=== PATIENT | female | born 1985 | race Asian ===

== ENCOUNTER → 2022-08-31 08:42 | Outpatient (CLI) | payer OTHER, SELFPAY ==
--- NOTE | 2022-08-31 08:44 | DI.US.S_ITS ---
PROCEDURE: US OB <= 14 WEEKS FETUS INDICATIONS: Dating and viability OUTSIDE/PRIOR DATING DATA: Last menstrual period (LMP): 06/02/2022. LMP-based estimated date of delivery (KAMERON): 03/09/2023. First dating scan (date and location): 08/31/2022 today. Estimated date of delivery (KAMERON) from first dating scan: 03/06/2023. TECHNIQUE: Real-time scanning was performed of the fetus and maternal pelvic organs, with image documentation. Endovaginal scanning was also performed to better visualize the fetus and maternal ovaries. COMPARISON: None. FINDINGS: Heart rate is 157 beats per minute. Cervix appears closed. BPD is 2.1 cm. Head circumference is 8 cm. Abdominal circumference is 6.9 cm. Femur length is 1 cm. Estimated gestational age of 12 weeks and 6 days. Composite gestational age today is 13 weeks and 2 days. IMPRESSION: Single intrauterine gestation. Heart motion is seen. Ultrasound age as above, concordant with the reported LMP. Dictated by: Vince Oates M.D. on 08/31/2022 at 9:36 Approved by: Vince Oates M.D. on 08/31/2022 at 9:38
== END ==
PROVIDERS: Referring Provider Obstetrics & Gynecology; Visit Provider Obstetrics & Gynecology
DX: Z36.87 Encounter for antenatal screening for uncertain dates (principal); Z3A.12 12 weeks gestation of pregnancy
CPT/HCPCS: 76801; 76817

== ENCOUNTER → 2022-09-03 16:21 | Outpatient (CLI) | payer OTHER, SELFPAY ==
[2022-09-03 20:33] LABS: Urine N gonorrhoeae NOT DETECTED
[2022-09-03 20:37] LABS: Urine Chlamydia NOT DETECTED
== END ==
PROVIDERS: Visit Provider Specialist
DX: Z34.81 Encounter for supervision of other normal pregnancy, first trimester (principal); Z3A.13 13 weeks gestation of pregnancy
CPT/HCPCS: 87491; 87591

== ENCOUNTER → 2022-09-03 16:47 | Outpatient (CLI) | payer OTHER, SELFPAY ==
[2022-09-03 16:58] LABS: Specimen Label Y
[2022-09-03 17:59] LABS: Add Manual Diff / Slide Review NO; Basophils Absolute Auto 0 /uL (0-100); Basophils Percent Auto 0.2 % (0-2); Eosinophils Absolute Auto 0 /uL (0-450); Eosinophils Percent Auto 0.4 % (2-4); Hematocrit 38.4 % (36-46); Lymphocytes Absolute Auto 1400 /uL (1100-4500); Lymphocytes Percent Auto 18.1 % (25-40); Mean Corpuscular HGB Conc 33.9 % (30-36); Mean Corpuscular Hemoglobin 29.2 PG (26-34); Mean Corpuscular Volume 86.1 fL (80-100); Monocytes Absolute Auto 400 /uL (0-900); Monocytes Percent Auto 5.6 % (3-14); Neutrophils Absolute Auto 5700 /uL (1500-7000); Neutrophils Percent Auto 75.7 % (50-75); Platelet Count 236 X10^3/uL (150-400); Red Blood Cell Count 4.46 X10^6/uL (4.0-5.2); Red Cell Distribution Width 13.9 % (11.6-14.8); White Blood Cell Count 7.5 X10^3/uL (4.5-11.0)
[2022-09-03 19:08] LABS: TSH w/ Reflex to FT4 1.39 uIU/mL (0.47-4.68)
[2022-09-04 07:03] LABS: RPR Screen Non Reactive (Non Reactive)
[2022-09-04 08:09] LABS: Varicella IgG Antibody 1728 index (Immune >165)
[2022-09-06 14:07] LABS: Hepatitis B Surface Antigen NEGATIVE s/c (NEGATIVE)
[2022-09-06 14:25] LABS: Hep C Virus Ab w/Reflex Quant NEGATIVE s/c (NEGATIVE)
[2022-09-06 14:51] LABS: HIV 1 & 2 Ab/Ag 4th Gen Combo NEGATIVE (NEGATIVE)
== END ==
PROVIDERS: Obstetrics & Gynecology; Referring Provider Specialist; Visit Provider Specialist
DX: O09.521 Supervision of elderly multigravida, first trimester; R53.83 Other fatigue; O99.891 Other specified diseases and conditions complicating pregnancy; Z3A.13 13 weeks gestation of pregnancy
CPT/HCPCS: 36415; 80055; 84443; 86787; 86803; 86850; 86900; 86901; 87086; 87389; 87491; 87591

== ENCOUNTER → 2022-09-30 08:23 | Outpatient (CLI) | payer OTHER, SELFPAY ==
[2022-10-02 20:08] LABS: AFP Value 38.6 ng/mL (.); Gest Age on Col Date 17.1 weeks (.); Insulin Dep Diabetes No (.); OSBR Risk 1IN 10000 (.); Results Report (.); Test Results *Screen Negative* (.)
== END ==
PROVIDERS: Referring Provider Specialist; Visit Provider Specialist
DX: Z34.82 Encounter for supervision of other normal pregnancy, second trimester (principal); Z3A.17 17 weeks gestation of pregnancy
CPT/HCPCS: 36415; 82105

== ENCOUNTER → 2022-10-22 16:26 | Outpatient (CLI) | payer OTHER, SELFPAY ==
--- NOTE | 2022-10-22 16:27 | DI.US.S_ITS ---
PROCEDURE: US OB >= 14 WEEKS FETUS INDICATIONS: 20 week anatomy OUTSIDE/PRIOR DATING DATA: Last menstrual period (LMP): 06/02/2022. LMP-based estimated date of delivery (KAMERON): 03/09/2023. First dating scan (date and location): 08/31/2022. Estimated date of delivery (KAMERON) from first dating scan: 03/06/2023. TECHNIQUE: Real-time scanning was performed of the fetus, with image documentation and biometric measurements. Endovaginal scanning: Not performed COMPARISON: [facility], US, US OB >= 14 WEEKS FETUS, 09/30/2022, 8:19. FINDINGS: General: A single living intrauterine gestation is present. Presentation: Breech. Placenta: Placental position is posterior , without previa. Amniotic fluid index: 15.7 cm, normal range is 5-24 cm. Single deepest vertical pocket is 4.5 cm. heart rate: 145 beats per minute. Maternal cervical canal: 3.6 cm long. Normal lower limit is 2.5 cm. biometrics: Biparietal diameter: 4.8 cm 20 weeks 3 days Head circumference: 18.1 cm 20 weeks 4 days Abdominal circumference: 15.5 cm 21 weeks 0 days Femur length: 3.3 cm 20 weeks 1 day estimated gestational age: 20 weeks 2 days Composite gestational age from present scan: 20 weeks 4 days Estimated weight and percentile: 365 g, 64th percentile Anatomic survey: Neuro: Ventricles are non-dilated at less than 10 mm. Cisterna magna is normal at 3-11 mm. Cerebellum is normal in size and morphology. Nuchal skin fold: Normal at less than 6 mm between 14-21 weeks gestational age. Face: Facial profile and nose and lips not well seen. Spine: No evidence for spina bifida. Heart: 4-chambered heart is present, with normal ventricular outflow tracts. Diaphragm: Diaphragm is intact. Stomach: Left-sided stomach is present. Kidneys: No hydronephrosis. Normal is less than 5 mm in 2nd trimester, less than 7 mm in 3rd trimester. Cord: 3-vessel cord has orthotopic insertion. Bladder: Normal in size. Extremities: All 4 extremities identified. IMPRESSION: 1. Single living intrauterine . 2. facial profile and nose/lips were not well seen. Attention on follow-up recommended. 3. Visualized anatomy is within normal limits. We strive to produce accurate, complete, and clear reports of imaging services. To assist us in improving patient care, this report was composed using standard report templates and voice recognition software. Therefore, it may contain abnormal punctuation, insertions and/or omissions. Occasional wrong-word or sound-alike substitutions may occur. Though we review the report and make efforts to correct it, we do recommend that the report be read carefully in proper context to recognize any text inaccuracies. Dictated by: Mark Anthony Kendall M.D. on 10/24/2022 at 13:02 Approved by: Mark Anthony Kendall M.D. on 10/24/2022 at 13:09
== END ==
PROVIDERS: Referring Provider Specialist; Visit Provider Specialist
DX: Z34.82 Encounter for supervision of other normal pregnancy, second trimester (principal); Z3A.20 20 weeks gestation of pregnancy
CPT/HCPCS: 76811

== ENCOUNTER → 2022-11-01 11:35 | Outpatient (CLI) | payer OTHER, SELFPAY ==
--- NOTE | 2022-11-01 11:35 | DI.US.S_ITS ---
PROCEDURE: US OB FOLLOW UP INDICATIONS: FOLLOW UP ANATOMY OUTSIDE/PRIOR DATING DATA: Last menstrual period (LMP): 06/02/22. LMP-based estimated date of delivery (KAMERON): 03/09/23. First dating scan (date and location): 08/08/22. Estimated date of delivery (KAMERON) from first dating scan: 03/06/23. The calculations are made using the working KAMERON of 03/09/23. TECHNIQUE: Real-time scanning was performed of the fetus, with image documentation. Endovaginal scanning: Not performed COMPARISON: [facility], OB >= 14 WEEKS FETUS, 10/22/2022, 16:35. FINDINGS: A single living intrauterine gestation is present. Presentation: Vertex. Placenta: Placental position is posterior, without previa. Amniotic fluid index: 16.5 cm, normal range is 5-24 cm. Single deepest vertical pocket is 4.3 cm. heart rate: 145 beats per minute. Maternal cervical canal: Closed and 4.2 cm long. Normal lower limit is 2.5 cm. Clinically estimated gestational age: 21 weeks 5 days facial features including the profile, nose, lips, and orbits appear normal. Incidental note is made of synechiae/amniotic sheet in the left lower quadrant adjacent to the lower aspect of the placenta. IMPRESSION: 1. Single living intrauterine . 2. Completion of anatomic survey with visualization of normal facial features. 3. Incidental note made of synechiae in the left lower quadrant, most commonly secondary to prior uterine scarring. Dictated by: Katlyn Matamoros M.D. on 11/01/2022 at 17:32 Approved by: Katlyn Matamoros M.D. on 11/02/2022 at 18:28
== END ==
PROVIDERS: Referring Provider Specialist; Visit Provider Specialist
DX: Z36.2 Encounter for other antenatal screening follow-up (principal); Z3A.21 21 weeks gestation of pregnancy
CPT/HCPCS: 76816

== ENCOUNTER → 2022-12-02 16:22 | Outpatient (CLI) | payer OTHER, SELFPAY ==
[2022-12-02 18:34] LABS: GTT (PREG) 1 Hour PP 50gm Dose 132 mg/dL (76-139)
[2022-12-02 18:36] LABS: Hematocrit 32.9 % (36-46); Hemoglobin 10.8 g/dL (12.0-16.0)
== END ==
PROVIDERS: Referring Provider Student in an Organized Health Care Education/Training Program; Visit Provider Student in an Organized Health Care Education/Training Program
DX: Z34.82 Encounter for supervision of other normal pregnancy, second trimester (principal); Z3A.26 26 weeks gestation of pregnancy
CPT/HCPCS: 36415; 82950; 85014; 85018

== ENCOUNTER 2023-02-08 03:58 | Inpatient (IN) | payer OTHER, SELFPAY ==
[2023-02-08] VITALS (7 sets, daily range): BP systolic 97–114; BP diastolic 67–72; PULSE 68–77; RESP 12–16; TEMP 36.3–36.6; O2SAT 99–100
--- NOTE | 2023-02-08 | PATH_ITS ---
[facility] Accession Number: [id number] . 01 Material submitted: . fallopian tube - BILATERAL FALLOPIAN TUBES . 01 Diagnosis: Bilateral Fallopian Tubes, Bilateral Salpingectomy: Complete cross-section of bilateral fimbriated fallopian tubes identified without any significant pathologic alterations. AMOS 02/15/2023 1000 Local . 01 Electronically signed: . Shavonne Guerrero MD, Pathologist NPI- [id number] . 01 Gross description: . The specimen is received in formalin labeled with the patient's name, , and bilateral fallopian tubes, and consists of two unoriented, fimbriated fallopian tubes measuring 7.3 x 0.8 cm and 9.4 x 0.5 cm respectively. Both tubes have violaceous, smooth serosa with multiple cystic structures measuring up to 0.1 cm in greatest dimension filled with cloudy serous fluid. Sectioning reveals unremarkable stellate lumen. Commercial Baker Helper sections to include one-half of bisected fimbriae and cross-sections are submitted as follows: A1: Longer fallopian tube. A2: [place] fallopian tube. ([id number]) /AMOS 02/10/2023 1050 Local . 01 Pathologist provided ICD-10: Z30.2 . 01 CPT . 424213 Performed at: 01 [facility] [address], [place], [place] [id number] MD Dru Newell MD Phone: [phone]
[2023-02-08 05:51] LABS: Add Manual Diff / Slide Review NO; Basophils Absolute Auto 0 /uL (0-100); Basophils Percent Auto 0.3 % (0-2); Eosinophils Absolute Auto 100 /uL (0-450); Eosinophils Percent Auto 0.5 % (2-4); Hematocrit 36.7 % (36-46); Hemoglobin 11.9 g/dL (12.0-16.0); Lymphocytes Absolute Auto 1100 /uL (1100-4500); Lymphocytes Percent Auto 10.7 % (25-40); Mean Corpuscular HGB Conc 32.4 % (30-36); Mean Corpuscular Volume 83.5 fL (80-100); Monocytes Absolute Auto 700 /uL (0-900); Monocytes Percent Auto 7.3 % (3-14); Neutrophils Absolute Auto 8300 /uL (1500-7000); Neutrophils Percent Auto 81.2 % (50-75); Platelet Count 180 X10^3/uL (150-400); Red Cell Distribution Width 20.4 % (11.6-14.8); White Blood Cell Count 10.2 X10^3/uL (4.5-11.0)
[2023-02-08 06:15] LABS: Anisocytosis 2+
[2023-02-08 06:16] LABS: Microcytosis 1+; Ovalocytes 1+; Tear Drop Cells 1+
[2023-02-08] MEDS: LACTATED RINGERS 1,000 ML 999 ML IV (06:17)
[2023-02-08] MEDS: AMPICILLIN 2,000 MG in SODIUM CHLORIDE 0.9% 100 ML 200 MG IV (06:18)
[2023-02-08] MEDS: BETAMETHASONE 30 MG/5 ML MDV 12 MG IM (06:30)
[2023-02-08 06:42] LABS: Strep Grp B PCR POS for Grp B Strep
--- NOTE | 2023-02-08 07:29 | PM.OBHP.1 ---
OB HPI Date/Time Date of admission: 02/08/23 Date Patient Seen: 02/08/23 Time Patient Seen: 07:29 History of Present Condition Chief complaint: IUP, 35+6 wks, prior CS, SROM : 3 Para: 1 Estimated Date of Delivery: 03/09/23 Estimated Gestational Age (weeks): 35+6 Narrative: Jennifer Ornelas is a 37 year old admitted now at 35+ 6 weeks gestational age with spontaneous rupture membranes earlier today. Patient had a prior section and is scheduled to undergo repeat section later this month. She has requested sterilization at the time of her repeat section. Patient's has been complicated by advanced maternal age with normal cell free DNA testing noted. Patient's course has been largely uneventful with solid early dating and appropriate milestones throughout. Patient had a stat GBS PCR which is positive on admission. Indications Operative indications ( section): previous uterine surgery History of Present care: good care Dating criteria: LMP confirmed by 1st trimester US Ultrasounds: normal 1st trimester US and normal mid trimester US Obstetrical complications: none Preadmission Labs Blood type: B (+) positive -: Antibody screen: negative, GBS status: positive, HBsAG: negative, HIV: negative and RPR/VDLR: negative -: Chlamydia screen: not detected and Gonorrhea screen: not detected -: Rubella: immune and Varicella: immune HCT: 36.7 HCAB: negative PAP: Normal Quad screen: Normal (AFP testing negative) Cell-free DNA: Low risk male infant 1 hr GTT: 132 Prior (ies) History: CS x 1; SAB x 1 Evaluation Evaluation Baseline heart rate: 145 Variability: Moderate (11-25) monitor accelerations: Present Monitor Decelerations: Absent Uterine Contraction Intensity: Mild Status: Category l [facility] Medical History (Updated 12/29/22 @ 11:07 by Lucila Patel DO) Allergies (~2004) Anxiety (~2004) Shoulder pain (~2006) Chicken pox (~1993) Painful menstrual periods (~2002) Human papilloma virus (~2013) Heavy menstrual period (~2002) Abnormal Pap smear of cervix (~2013) depression (~2009) Arm fracture Adopted Primary cervical squamous cell carcinoma Surgical History (Updated 09/29/22 @ 19:06 by Lore Chen) Anesthesia [place] teeth extracted (~04/07/00) Previous section (~02/19/10) H/O LEEP (~2017) Social History marital status: number of children: 1 household members: spouse and children lives independently: Yes caregiver/support person: Yes housing: house pets and animals: Yes (1 dog) education level: college (some college) occupational status: unemployed current occupational exposures/hazards: No royce/samaritan: Anabaptist special royce needs: No travel history: recent (domestic only) seatbelt use: always helmet use: Yes water heater temp set < 120 deg: Yes working smoke detector in home: Yes fire extinguisher in home: Yes carbon monox detector in home: Yes firearms in home: Yes firearms unloaded and locked: Yes do you feel safe at home: Yes Smoking Status: Never smoker second hand exposure: No ( recently quit smoking) alcohol intake: former (occasionally when not ) substance use type: marijuana (edibles and topicals when not /) during the past year weight has: remained stable well-balanced diet: daily or most days daily servings fruits/ve or more times/day caffeine: Yes (aware of 200mg limit) Type(s) of exercise: walking, other (hiking) and yoga frequency: 5-6 times per week Meds Home Medications and Allergies Home Medications Medication Instructions Recorded Confirmed Type L.acidoph, paracasei,B. lactis 10 cell PO 08/19/22 01/26/23 History billion cell capsule (Digestive Advantage Advanced Probiotic) [id number] 400 mcg-om3 35 mg-dha 25 tab PO 08/19/22 01/26/23 History mg-epa 5 mg-fish oil chewable tablet ferrous sulfate 325 mg (65 mg 325 mg PO DAILY 08/19/22 01/26/23 History iron) tablet (Feosol) magnesium citrate,mag oxide 250 mg mg PO 08/19/22 01/26/23 History capsule melatonin 5 mg tablet 5 mg PO BEDTIME PRN 08/19/22 01/26/23 History cetirizine 10 mg capsule (Zyrtec) 10 mg PO DAILY PRN allergy 12/29/22 01/26/23 Rx symptoms #30 caps omeprazole 40 mg capsule,delayed 40 mg PO DAILY #30 caps 12/29/22 01/26/23 Rx release breast pump #1 ea 01/19/23 01/26/23 Rx RSVPreF3 antigen 2 of 2 120 mcg IM 0.5 ml IM ONCE #1 ea 01/26/23 01/26/23 Rx susp Allergies Allergy/AdvReac Type Severity Reaction Status Date / Time No Known Allergies Allergy Verified 02/08/23 07:58 ciprofloxacin AdvReac Severe Hallucinati Verified 01/26/23 11:29 ng codeine AdvReac Intermediate Vomiting Verified 01/26/23 11:29 Review of Systems Review of Systems Narrative: Problem-specific ROS positives included in HPI OB Exam Vital signs Blood Pressure: 114/72 Pulse Rate: 77 Temperature: 97.9 F HENMT Head: normal to inspection, normocephalic and atraumatic Eyes General: appearance normal, both eyes and all related structures Resp Effort & Inspection: normal respiratory effort and able to speak in complete sentences Auscultation: clear to auscultation bilaterally Cardio Rate: regular rate Rhythm: regular rhythm Heart Sounds: S1 normal, S2 normal and no murmurs Extremities Lower extremity: Yes normal to inspection GI Inspection: normal to inspection Palpation: Yes soft and Yes no hepatosplenomegaly Uterus Location (Fundal Height): 34 Presentation: vertex Estimated Weight (lbs): 5 Objective Labs 02/08/23 05:30 Labs: Laboratory Results - last 24 hr 02/08/23 05:30 WBC 10.2 RBC 4.40 Hgb 11.9 L Hct 36.7 MCV 83.5 MCH 27.0 MCHC 32.4 RDW 20.4 H Plt Count 180 Neut % (Auto) 81.2 H Lymph % (Auto) 10.7 L Pratt % (Auto) 7.3 Eos % (Auto) 0.5 L Baso % (Auto) 0.3 Neut # (Auto) 8300 H Lymph # (Auto) 1100 Pratt # (Auto) 700 Eos # (Auto) 100 Baso # (Auto) 0 RBC Morphology See below Anisocytosis 2+ H Microcytosis 1+ H Tear Drop Cells 1+ H Ovalocytes 1+ H Group B Strep (PCR) Pos for grp b strep H Blood Type B Positive Antibody Screen Negative Assessment and Plan Assessment and Plan Assessment and Plan narrative: ASSESSMENT 1. Intrauterine , 35+ 6 weeks gestational age 2. SROM 3. Advanced maternal age 4. Request for sterilization 5. Prior section x1 6. GBS positive status PLAN 1. Admit for repeat section and bilateral salpingectomy per patient request for elective sterilization. Patient understands that such a procedures 1 which will result in her permanently and irreversibly being unable to bear children in the future without benefit of assisted reproductive technology. 2. Antibiotic prophylaxis with ampicillin prior to Ancef to be administered at the time of repeat section 3. IM betamethasone 12 mg given and will delay repeat section for 6+ hours to permit steroid effect for infant 4. See admission orders Time Spent with Patient Total time spent with greater than 50% in coordination of care (as documented) at patient's floor/unit and/or counseling patient:: 15-24 minutes
--- NOTE | 2023-02-08 09:44 | PM.PREOP ---
Pre-operative Note COVID-19 COVID-19 status: Not tested Interval Note History & Physical reviewed/Exam performed by Physician: Yes Changes to H&P: No
[2023-02-08] MEDS: LACTATED RINGERS 1,000 ML 100 ML IV (09:50)
[2023-02-08] MEDS: CITRIC ACID/SODIUM CITRATE 15 ML SOLUTION 30 ML PO (12:15)
[2023-02-08] MEDS: ACETAMINOPHEN 325 MG TABLET 975 MG PO (12:15)
[2023-02-08] MEDS: CEFAZOLIN 2 GM/100 ML PREMIX 100 ML IV (12:45)
--- NOTE | 2023-02-08 13:02 | SUR.OPER ---
Supine on Padded OR bed, head on pillow, safety belt at thigh, arms secured on padded arm boards at <90 degrees abduction. Bump under right buttock. Legs uncrossed with pillow under knees, gel pad to heels, tape over blanket to lower legs.
--- NOTE | 2023-02-08 13:18 | SUR.OPER ---
FHR 145. Vaccuum delivery kit used x1. viable baby boy born at 1317. Placenta delivered at 1320.
--- NOTE | 2023-02-08 14:29 | PM.OBCS.1 ---
Operative Date/Time/Diagnoses Date of procedure: 02/08/23 Time of procedure: 12:40 Pre-op diagnosis: Intrauterine gestation, reed, 35+6 weeks EGA Previous section x 1 Advanced maternal age SROM Request for sterilization Post-op diagnosis: same Procedure & Clinicians Procedure: Repeat section, low transverse cervical Lysis of adhesions (necessary for delivery of the infant) Bilateral salpingectomy Same procedure as scheduled: Yes Indications: Jennifer Ornelas is a 37 year old admitted now at 35+ 6 weeks gestational age with spontaneous rupture membranes earlier today. Patient had a prior section and is scheduled to undergo repeat section later this month. She has requested sterilization at the time of her repeat section. Patient's has been complicated by advanced maternal age with normal cell free DNA testing noted. Patient's course has been largely uneventful with solid early dating and appropriate milestones throughout. Patient had a stat GBS PCR which is positive on admission. Surgeon: John Gonsalez Travel Registered Nurse Icu: Claudette Hinton Reason for Travel Registered Nurse Icu: Travel Registered Nurse Icu required for the safe, effective, and timely completion of this surgery. Anesthesia Type: Spinal Operative Notes Findings: Viable male infant BW [], Apgars []/[], delivered from the vertex presentation. Upon entry into the abdominal cavity, dense adhesions involving the anterior surface of the lower 3rd of the uterus with the dome of the bladder were encountered. Adhesions also involved the anterior fascia inferior to the abdominal entry site. Both fallopian tubes appeared to be normal as did both ovaries. The lower uterine segment itself was quite thick as the patient had not labored prior to the procedure. The sustained a 2.5 cm, very superficial linear scalpel cut starting at the right side of the brow in descending inferiorly across the right brown and down to the uppermost portion of the eyelid. The laceration was superficial, was not bleeding, and did not involve any deep structures. Closure Type: primary Specimen(s): cord blood Intraoperative meds administered: Ketorolac and Pitocin Applied: Catheter Estimated Blood Loss (mL): 800 Blood products transfused: none Procedure in detail: With her informed written consent, the patient was taken to the operating room and placed in the supine position for a repeat section procedure, for the indication(s) above. The abdomen was prepped and draped in the usual manner for section and a pre-surgical timeout was taken per [facility] OR protocol. Once effective anesthesia was confirmed, a 13 cm transverse Pfannenstiel incision was made in the skin and the majority of her old scar was excised. The incision was then taken down through the subcutaneous tissues to the deep fascia. The deep fascia was incised transversely, the rectus abdomini bluntly and sharply to achieve entry into the peritoneal cavity. Dense adhesions were then encountered as mentioned above and a combination of both sharp and blunt dissection was utilized to carefully separate the anterior wall of the uterus from the ladder and the anterior abdominal wall. Once the adhesions were adequately lysed so as to provide best the lower uterine segment, the lower uterine segment was incised sharply and the amniotic sac ruptured with Allis clamps revealing clear fluid. The lower uterine segment was visualized and the position/presentation palpated. A transverse incision above the vesicouterine reflection was made with Metzenbaum scissors and transverse hysterotomy performed near the midline. Amniotomy revealed clear fluid. The incision was extended bilaterally with bandage scissors and the infant was delivered with vacuum assist from the vertex presentation. The infant was vigorous and cord clamping was delayed for 60 seconds. The placenta was delivered intact using gentle cord traction and fundal massage. The uterine cavity was then cleared of any clot/debris first with a sloppy wet lap tape followed by a dry lap tape. Ring forceps were then applied to the angles and the midline of the incised YENIFER. A primary closure of the uterus was then accomplished with #1 CCGS in a running interlocking stitch followed by a 2nd layer of #1 CCGS in a running interlocking imbricating stitch. Six additional [id number] sutures was/were required to achieve complete hemostasis of the remaining denuded area created by extensive lysis of adhesions. Once pelvic hemostasis was assured, attention was then turned to performance of the bilateral salpingectomy. The distal right fallopian tube was then grasped with a Plain clamp and using a handheld LigaSure device, the fimbria ovarica was coagulated and divided with the mesosalpinx also coagulated and divided sequentially over to the cornua on the right side. The fallopian tube was then amputated and passed off the field. Attention was then turned to the left fallopian tube which was similarly grasped at its most distal portion. The LigaSure bipolar device was then used to coagulate and divide the fimbria ovarica The bladder flap and anterior peritoneum were closed with a running 2-0 Vicryl suture and the fascia closed with #1 Vicryl in a running stitch initiated at both angles and tying separately near the midline. The subcutaneous tissues were reapproximated with 2-0 plain catgut suture using inverted interrupted stitches. The skin edges were then brought together with 4-0 Monocryl in a subcuticular closure and the incision was reinforced with 1 Steri-Strips. An appropriate compression dressing was applied and the patient transferred to PACU for recovery and subsequent transfer to the Center for recuperation. Complications: other ( injury; superficial scalpel laceration, right brow) [place] Baby 1: Gender: Male Presentation: vertex Position: Left Occiput Posterior Placental Delivery Description: Spontaneous and Expressed Cord Vessel Description: 3 Vessels Post-operative Condition: stable Disposition: PACU Aftercare: routine postop
[2023-02-08] MEDS: ONDANSETRON 4 MG/2 ML INJ (16:41)
[2023-02-08] MEDS: METOCLOPRAMIDE 10 MG/2 ML INJ IV (19:21)
[2023-02-08] MEDS: KETOROLAC 30 MG/ML VIAL IV (21:15)
[2023-02-08] MEDS: LANOLIN OINT 7 GM 1 APPLIC TOP (21:20)
[2023-02-09] MEDS: METOCLOPRAMIDE 10 MG/2 ML INJ IV (00:47)
[2023-02-09] MEDS: KETOROLAC 30 MG/ML VIAL IV ×2 (03:13→09:47)
[2023-02-09 06:34] LABS: Add Manual Diff / Slide Review NO; Basophils Absolute Auto 0 /uL (0-100); Basophils Percent Auto 0.1 % (0-2); Eosinophils Absolute Auto 0 /uL (0-450); Hematocrit 27.7 % (36-46); Hemoglobin 9.1 g/dL (12.0-16.0); Lymphocytes Absolute Auto 1000 /uL (1100-4500); Mean Corpuscular HGB Conc 32.8 % (30-36); Mean Corpuscular Volume 82.1 fL (80-100); Monocytes Absolute Auto 1100 /uL (0-900); Monocytes Percent Auto 5.8 % (3-14); Neutrophils Absolute Auto 17100 /uL (1500-7000); Neutrophils Percent Auto 89.1 % (50-75); Platelet Count 163 X10^3/uL (150-400); Red Blood Cell Count 3.38 X10^6/uL (4.0-5.2); Red Cell Distribution Width 19.8 % (11.6-14.8); White Blood Cell Count 19.2 X10^3/uL (4.5-11.0)
[2023-02-09] MEDS: ACETAMINOPHEN 325 MG TABLET 650 MG PO ×2 (06:50→15:12)
--- NOTE | 2023-02-09 08:51 | P.PNOB_ITS ---
Subjective - OB Subjective Patient comments: no complaints and pain well controlled baby status: doing well feeding status: breast and bottle feeding Date Patient Seen: 02/09/23 Time Patient Seen: 08:51 Exam Vital Signs (past 8 hours): Oxygen Delivery Method Room Air Objective Labs 02/09/23 06:20 Labs: Laboratory Results - last 24 hr 02/09/23 06:20 WBC 19.2 H D RBC 3.38 L Hgb 9.1 L Hct 27.7 L MCV 82.1 MCH 27.0 MCHC 32.8 RDW 19.8 H Plt Count 163 Neut % (Auto) 89.1 H Lymph % (Auto) 5.0 L [place] % (Auto) 5.8 Eos % (Auto) 0.0 L Baso % (Auto) 0.1 Neut # (Auto) 38712 H Lymph # (Auto) 1000 L [place] # (Auto) 1100 H Eos # (Auto) 0 Baso # (Auto) 0 Assessment & Plan Time Spent With Patient Time: Total time spent is greater than 50% in coordination of care (as documented) at patient's floor/unit and/or counseling patient:
[2023-02-09 09:47] VITALS: TEMP 37.2
[2023-02-09] MEDS: DOCUSATE 100 MG CAPSULE PO (09:50)
[2023-02-09] MEDS: IBUPROFEN 600 MG TABLET PO (15:11)
--- NOTE | 2023-02-09 15:53 | P.DS_ITS ---
Discharge Providers Provider Date of admission: 02/08/23 03:58 Discharge Date: 02/09/23 Primary care physician: DYANA Adams Consults: 02/08/23 05:30 Consult to Anesthesiology Urgent Comment: Consulting Provider: Anesthesiologist Reason for consultation: Epidural 02/08/23 16:21 Consult to Plating Machine Operator Routine Comment: Discharge provider: John Gonsalez MD Summary Hospital Course Date Patient Seen: 02/09/23 Time Patient Seen: 15:54 Diagnoses: Intrauterine , Michel, 35+ 6 weeks gestational age, delivered by repeat section S/P bilateral salpingectomy Premature rupture membranes Prior section Advanced maternal age Request for sterilization Hospital Course: Jennifer was admitted on 02/08/2023 after experiencing spontaneous rupture membranes at 35+ 6 weeks gestational age. She was admitted at that time and underwent repeat section with bilateral salpingectomy. Full details of the procedure well summarized on my operative note of that date. Following surgery both her baby and the patient done extremely well with the mother experiencing prompt return of bowel and bladder function, she is ambulating independently, tolerating regular diet, and her pain is well controlled with oral pain medications. She will be discharged at this time to home in an afebrile normotensive condition after counseling regarding precautionary symptoms, limitations of activity, medications, and follow-up which will be in 1 week for incision check her her medications at discharge will include resumption of all pre-admission medications as well as ibuprofen 600 mg every 6 hours as needed for pain and hydromorphone 4 mg every 4-6 hours as needed for pain. Peripartum Data Delivery Method: Section Laceration Description: None Episiotomy description: None Procedures: Spinal block anesthetic Repeat section, low transverse cervical Bilateral salpingectomy complications: none 1: Gender: Male Disposition of : home Status at Discharge Cognitive/behavioral status at discharge: oriented Functional status at discharge: independent ambulation Overall status at discharge: patient is progressing back to baseline Time Spent with Patient Time attestation: Total time spent providing and/or coordinating discharge services: Time spent: Less than 30 minutes Objective Labs 02/09/23 06:20 Labs: Laboratory Results - last 24 hr 02/09/23 06:20 WBC 19.2 H D RBC 3.38 L Hgb 9.1 L Hct 27.7 L MCV 82.1 MCH 27.0 MCHC 32.8 RDW 19.8 H Plt Count 163 Neut % (Auto) 89.1 H Lymph % (Auto) 5.0 L [place] % (Auto) 5.8 Eos % (Auto) 0.0 L Baso % (Auto) 0.1 Neut # (Auto) 68095 H Lymph # (Auto) 1000 L [place] # (Auto) 1100 H Eos # (Auto) 0 Baso # (Auto) 0 Exam Vital Signs (past 8 hours): - 02/09/23 09:47 Temperature 99 F Oxygen Delivery Method Room Air Const General: cooperative and comfortable Nutritional Appearance: average body habitus Orientation: alert and oriented x3 HENMT Head: normal to inspection, atraumatic and abrasion Ears: hearing grossly normal bilaterally Face and sinus: face symmetric Eyes General: appearance normal, both eyes and all related structures Conjunctivae: conjunctivae normal Sclera: sclerae normal EOM: EOM intact bilaterally Neck Neck: normal visual inspection Resp Effort & Inspection: normal respiratory effort and able to speak in complete sentences Auscultation: clear to auscultation bilaterally Cardio Rate: regular rate Rhythm: regular rhythm Heart Sounds: S1 normal, S2 normal and no murmurs GI Inspection: normal to inspection and incision (Surgical dressing clean and dry) Palpation: soft, no hepatosplenomegaly and tender (Mild, diffuse postsurgical tenderness) Auscultation: normal bowel sounds External Female Exam: other (No significant bleeding noted) Extrem General: no calf tenderness Psych Appearance: grossly normal Mental Status: mental status grossly normal Speech and Movement: speech and movement normal Mood: congruent mood Affect: normal affect Attitude: cooperative Thought Process: normal Thought Content: normal Judgment: judgment good Discharge Plan Discharge Plan Patient Disposition: Home Provider Discharge Comment: Please review the written instructions you received when you were discharged from the hospital. Your follow-up appointment will be scheduled for 1 week after your and I look forward to seeing you then. If however in the meanwhile you have any issues, concerns, or questions, please contact the office either at [phone], or via the patient portal. Discharge orders & Medications Prescriptions: New hydromorphone 4 mg Tablet 4 mg PO Q4HR PRN (Reason: Pain, Severe (7-10)) Qty: 15 0RF Continued [id number] oil 400 mcg-35 mg -25 mg-5 mg tablet,chewable PO ferrous sulfate [Feosol] 325 mg (65 mg iron) tablet 325 mg PO DAILY Digestive Advantage Advanced 10 billion cell capsule PO magnesium citrate,mag oxide 250 mg capsule PO melatonin 5 mg tablet 5 mg PO BEDTIME PRN RSVPreF3 antigen 2 of 2 120 mcg suspension for reconstitution 0.5 ml IM ONCE Qty: 1 0RF Zyrtec 10 mg capsule 10 mg PO DAILY PRN (Reason: allergy symptoms) Qty: 30 3RF No Action docusate sodium [Dulcolax Stool Softener (dss)] 100 mg capsule 100 mg PO DAILY Qty: 20 0RF sennosides [Senna Laxative] 8.6 mg tablet 17.2 mg PO DAILY Qty: 20 0RF Rx Instructions: take at bedtime omeprazole 40 mg capsule,delayed release(DR/EC) 40 mg PO DAILY Qty: 60 1RF (DME) breast pump Device See Rx Instructions .Route Qty: 1 0RF Hold Instructions: Home Medication placed on hold at Doctor's office Rx Instructions: As directed (DME) breast pump Device See Rx Instructions .ROUTE .MEDSUPPLY Qty: 1 0RF Rx Instructions: As directed ibuprofen 600 mg tablet 600 mg PO Q6H Qty: 30 0RF Follow up/Referrals: Joce Pinon ARNP [Primary Care Provider] - John Gonsalez MD [Physician] - (Your incision check appointment is scheduled for February 16 @9:00am. Your six week follow up appointment with Dr. Gonsalez is scheduled for March 23 @1:30pm.) Discharge Health Status Multidrug resistant organism: No MDRO Diet/Activity/Treatments Diet: Diet as Tolerated Activity: As tolerated Other treatments: [id number] stool softeners and/or MiraLax may be used as needed for constipation. [id number]-xrm-[id number] Tylenol and/or ibuprofen may be used for additional pain relief. Skin/Wound/Dressing Care Report to your healthcare provider any signs of infection, such as:: chills, fever, increased pain, unusual drainage and unusual redness Dressing: Dressing will be removed at the time of your one-week postop visit. Visit Report/Discharge Packet Instructions: DI for , DI for and Nipple Soreness, DI for Prescription Opioid Use Stand Alone Forms: Discharge: Care Discharge Data Primary Care Provider: Joce Pinon
[2023-02-09 17:13] VITALS: BP 109/67; PULSE 80; RESP 17; TEMP 37.2
== END 2023-02-09 18:15 | disposition home or self-care (01) | DRG 785 ==
PROVIDERS: Admitting Provider Obstetrics & Gynecology; PCP Nurse Practitioner Family; Referring Provider Obstetrics & Gynecology; Visit Provider Obstetrics & Gynecology
PROC: 10D00Z1 Extraction of Products of Conception, Low, Open Approach (ICD-10-PCS; CPT 59514; principal; 2023-02-08 13:30)
DX: O75.82 Onset (spontaneous) of labor after 37 completed weeks of gestation but before 39 completed weeks gestation, with delivery by (planned) cesarean section (principal); Z3A.35 35 weeks gestation of pregnancy; Z37.0 Single live birth; Z30.2 Encounter for sterilization; O99.892 Other specified diseases and conditions complicating childbirth; N73.6 Female pelvic peritoneal adhesions (postinfective); O99.824 Streptococcus B carrier state complicating childbirth
CPT/HCPCS: 36415; 58611; 59050; 59510; 59514; 84112; 85025; 86850; 86900; 86901; 87653; G0379; J0290; J0690; J0702; J1200; J1885; J2274; J2405; J2590; J2765; J3010